=== PATIENT | female | born 1940 | race Caucasian/White ===

== ENCOUNTER 2017-11-07 06:31 | Day surgery (SDC) | payer MEDICARE, MEDICAID, SELFPAY ==
[2017-10-17 08:56] VITALS: BMI 23.8
[2017-11-07] VITALS (8 sets, daily range): BP systolic 81–116; BP diastolic 36–75; PULSE 64–73; RESP 10–16; TEMP 36.2–37; O2SAT 94–97; BMI 23.8
--- NOTE | 2017-11-07 07:18 | PM.PREOP ---
Pre-operative Note Interval Note Pre-op Check: Yes History & Physical Reviewed by Physician and Yes Exam Performed Changes: No
--- NOTE | 2017-11-07 07:19 | PM.OP.1 ---
Operative Date/Time/Diagnoses Date of procedure: 11/07/17 Time of procedure: 09:20 Pre-op diagnosis: Medial compartment osteoarthritis left knee Post-op diagnosis: same Procedure & Clinicians Procedure: Left knee medial compartment arthroplasty Same procedure as scheduled: Yes Indications: The patient presents today for medial compartment knee arthroplasty after failure of conservative treatment. The nature of the procedure including the risks and benefits, alternatives, postoperative course and expected outcome were discussed and all questions answered. Consent was obtained. Operative site confirmed and marked. Surgeon: Musa Kearney Unpaid Intern: Kamaljit Bell Anesthesia Type: General and Local Operative Notes Findings: Severe medial compartment osteoarthritis. The patient bone was quite soft. Care was taken not to overly impact the tibial component. Closure Type: primary Specimen(s): none sent Implants & Drains: [employer]: CC femur, 3 tibia and 8 mm polyethylene spacer. Applied: implant(s) Estimated Blood Loss (mL): 5 Blood products transfused: none Tourniquet time (min): 45 Procedure in detail: The patient was taken to the operative suite and placed under general anesthesia. The patient received prophylactic antibiotics 1 g of IV tranexamic acid prior to surgery. [The lateral aspect of the leg was prepped and the knee injected with 20 mL of 1% lidocaine with epinephrine.] The leg was prepped and draped in usual sterile fashion. The leg was exsanguinated with an Esmarch dressing and the tourniquet raised to 250 torr. A 10 cm medial parapatellar incision and arthrotomy was then made. The anterior aspect of the fat pad and medial meniscus was resected. A small amount of anterior tibial boss was resected with a oscillating saw. The knee was then extended and the alignment guide placed. The distal femoral and proximal tibial cutting guides were then pinned into place. The distal femoral cut was made in extension. The proximal tibial cut was made in flexion. All remaining meniscus was excised. Gaps were checked with blocks. Soft tissues were then injected with a combination of [40 mL of quarter percent Marcaine with epinephrine, 20 mL of Exparel]. The femur was sized and the appropriate cutting guide placed. The peg holes were drilled and chamfer cuts made. Next the tibia was sized and drilled. Trial components were then placed. The knee had good sabianist of soft tissue tension without over correction. Range of motion was [full]. The trial components were removed. The knee was cleansed with Pulsavac irrigation and dried. The components were then cemented with high viscosity vacuum mixed bone cement. The knee was held in extension until the cement had adequately cured. The knee was then irrigated and inspected for any further debris. The extensor mechanism was closed at 90? of flexion with a few interrupted #1 Vicryl sutures and a running O V-LOC suture. [The knee was then filled with 50 mL of solution containing 1 g of tranexamic acid and 10 mL of 0.5% Marcaine.] The subcutaneous tissue was closed with 2-0 Vicryl. The skin was closed with a running 3 0 V-LOC suture and surgical adhesive. An Aquacel dressing was applied. The leg was then wrapped with an Marcelino which will be kept on for the first 24 hours. The patient tolerated the procedure well and was returned to recovery room in good condition. Complications: none Condition: stable Disposition: same day surgery Plan for aftercare: Routine aftercare for medial compartment arthroplasty. Discharge to home. Aspirin for DVT prophylaxis. Follow up in 2 weeks. Start physical therapy in 1 week.
[2017-11-07] MEDS: LACTATED RINGERS 1,000 ML 42 ML IV (07:38)
[2017-11-07] MEDS: ACETAMINOPHEN 325 MG TABLET 975 MG PO (07:39)
[2017-11-07] MEDS: CELECOXIB 200 MG CAPSULE PO (07:39)
[2017-11-07] MEDS: PREGABALIN 75 MG CAPSULE PO (07:40)
[2017-11-07] MEDS: CEFAZOLIN 2 GM/100 ML FROZ.PIGGY IV (08:19)
--- NOTE | 2017-11-07 08:44 | SUR.OPER ---
Supine on padded OR bed. Pillow under head, arms secured on padded armboards <90 degree abduction. Safety belt across torso. Non-operative leg secured with tape over blanket over lower leg. Operative leg secured in [employer]/Robert positioner. Foam padded brace at thigh of operative leg.
[2017-11-07] MEDS: BUPIVACAINE 0.5% W/ EPI (PF) 20 ML, BUPIVACAINE LIPOSOME 266 MG, SODIUM CHLORIDE 0.9% 2... INJ (08:53)
[2017-11-07] MEDS: BUPIVACAINE 0.5% (PF) 10 ML, TRANEXAMIC ACID 1,000 MG, SODIUM CHLORIDE 0.9% 20 ML INJ (08:53)
[2017-11-07] MEDS: POVIDONE-IODINE 15 ML, SODIUM CHLORIDE 0.9% 250 ML TOP (08:54)
[2017-11-07] MEDS: TRANEXAMIC ACID 1,000 MG VIAL 1000 MG IV (08:56)
[2017-11-07] MEDS: HYDROCODONE/ACET 5/325 TABLET 1 TAB PO (09:51)
--- NOTE | 2017-11-07 11:36 | SUR.PHASEII ---
pt ready to go home, no co's of pain or n/v, dsg dci, pt dressed at 1025, ambulated to w/c with out difficulty
== END 2017-11-07 10:25 | disposition home or self-care (01) ==
PROVIDERS: PCP Family Medicine; Visit Provider Orthopaedic Surgery
PROC: (CPT 27446; principal; 2017-11-07 07:45)
DX: M17.12 Unilateral primary osteoarthritis, left knee (principal); E11.9 Type 2 diabetes mellitus without complications; Z79.84 Long term (current) use of oral hypoglycemic drugs; Z87.891 Personal history of nicotine dependence
CPT/HCPCS: 27446; C1776; C9290; J0690; J2405; J2704; J3010